=== PATIENT | male | born 1990 | race Two or more races ===

== ENCOUNTER 2019-08-10 17:43 | Emergency (ER) | payer SELFPAY ==
[~2019-08-10] VITALS: Ht 167.6 cm; Wt 68.0 kg
--- NOTE | 2019-08-10 17:54 | NUR ---
@bedside, MSE in progress
[2019-08-10] MEDS ORDERED: IBUPROFEN 600 MG TABLET PO ONE (18:00)
[2019-08-10] MEDS ORDERED: IBUPROFEN 600 MG TABLET ONE (18:01)
[2019-08-10] MEDS ORDERED: LIDOCAINE 1%-EPI 1:100,000 20 ML VIAL ONE (18:16)
[2019-08-10] MEDS ORDERED: EPINEPHRINE 1 MG/1 ML AMP ONE (18:18)
[2019-08-10] MEDS ORDERED: EPINEPHRINE-PF 1:1000 1 MG/ML AMPUL IV ONE (18:30)
--- NOTE | 2019-08-10 18:34 | NUR ---
Patient discharged to home in stable condition with brisk steady gait. Written and verbal after care instructions given. Patient verbalized understanding & compliance of instructions. Stressed and emphasis for follow up with his PMD was given to patient or return to ER for worsening s/s.
== END 2019-08-10 18:35 | disposition home or self-care (01) ==
LOC: ER 17:45
PROC: 0HQDXZZ Repair Right Lower Arm Skin, External Approach (ICD-10-PCS; principal; 2019-08-10)
DX: S51.011A Laceration without foreign body of right elbow, initial encounter (principal); W18.30XA Fall on same level, unspecified, initial encounter; Y92.89 Other specified places as the place of occurrence of the external cause; Y99.8 Other external cause status
CPT/HCPCS: 12001; 73080; 99283; J0171; A4217; A4663; J3490